=== PATIENT | male | born 1990 | race Caucasian/White ===

== ENCOUNTER → 2019-11-03 | Outpatient (CLI) | payer OTHER ==
[~2019-11-03] MED LIST: FEXPSEER PO; Flomax0.4 MG PO; OXYC5; Sudogest30 MG
== END | disposition home or self-care (01) ==
LOC: LAB EV 18:53 → LAB SHORT 18:53
DX: R31.9 Hematuria, unspecified (principal)
CPT/HCPCS: 87086

== ENCOUNTER → 2021-12-09 | Outpatient (CLI) | payer OTHER | END | disposition home or self-care (01) | LOC: PLD 12:41 → LAB SHORT 12:41 | DX: L92.9 Granulomatous disorder of the skin and subcutaneous tissue, unspecified (principal); L90.5 Scar conditions and fibrosis of skin; L91.0 Hypertrophic scar | CPT/HCPCS: 88305; 88312 ==